=== PATIENT | female | born 1985 | race Caucasian/White ===

== ENCOUNTER 2016-12-24 05:12 | Emergency (ER) | payer OTHER ==
[~2016-12-24] VITALS: Ht 160 cm; Wt 86.4 kg
[~2016-12-24 05:12] MED LIST: PREN1TAB47 PO; TUMS PO
[2016-12-24 05:15] VITALS: BP 137/93; PULSE 96; RESP 16; O2SAT 98
[2016-12-24] MEDS ORDERED: 0.9% Sodium Chloride 1,000 ML IV ONE (05:23)
[2016-12-24] MEDS ORDERED: Ondansetron 2 mg/mL 2 mL Inj IVPUSH ONE (05:25)
--- NOTE | 2016-12-24 06:02 | ED.REPORT ---
HPI-Abd Pain F Under 40 Date of Service December 24, 2016 ED Provider: Wolf Cooley DO The pt is a 31 y/o female w/ a hx of multiple episodes of pyelonephritis presenting to the ED complaining of intermittent mid-back pain onset last week. Yesterday the pain was continuous. She reports the pain feeling better when she applies pressure and takes a warm shower. She also has SOB due to the pain. She denies fever, vomiting, diarrhea, abnormal vaginal discharge or dysuria. Nursing Notes Stated Complaint: RIGHT SIDED ABDOMINAL PAIN/CHEST PAIN Chief Complaint: Female Abdominal Pain Nursing Notes Reviewed: Yes Allergies: Coded Allergies: No Known Allergies (Verified , 03/28/06) Scheduled Calcium Carbonate-Expunged Drug, Do Not Renew (Tums Chewable-Expunged Drug, Do Not Renew!) 500 Mg Tablet 500 MG PO PRN Vit/Fe Fumarate/Fa-Expunged Drug, Do (-Expunged Drug, Do Not Renew!) 1 Tab Tablet 1 TAB PO DAILY Scheduled PRN Naproxen (Naproxen) 500 Mg Tab 500 MG PO BID PRN PRN For Pain General Time Seen by MD: 05:25 Chief Complaint Other (Back pain ) Hx Obtained From: Patient Arrived By: Walk-in Sudden in Onset?: Yes Onset Occurred: 1 week ago Symptom Duration: Since onset Location: : Back Quality: Painful Severity: Current: Mild Severity: Maximum: Mild Recent Healthcare: No recent doctor visit, No recent hospitalization Similar Sx Previous: Yes Past Medical History Past Medical History Pyelonephritis Past Surgical History Smoking History Unknown if Ever Smoker Social History Alcohol Use: "Social" Drug Use: Denies drug use Ambulatory Status Independent Review of Systems Constitutional: Denies: Fever Respiratory: Reports: Shortness of breath GI: Denies: Diarrhea, Vomiting Female: Denies: Dysuria, Vaginal discharge Musculoskeletal: Reports: Back pain, Lumbar pain Complete sys rev & neg: except as marked. Physical Exam Initial Vital Signs Vital Signs (First) Date Time Temp Pulse Resp B/P Pulse Ox O2 Delivery O2 Flow Rate FiO2 12/24/16 05:15 36.3 96 16 137/93 98 Room Air Initial VS: Reviewed, Vital signs normal General/Constitutional: Awake, Alert, No acute distress, Cooperative, Not toxic appearing Respiratory / Chest: Atraumatic, Breath sounds NL, Breath sounds = bilat, No respiratory distress, No rales, No rhonchi, No wheezing Cardiovascular: Heart rate NL, Regular rhythm, Heart sounds NL Abdomen: Atraumatic, Non-tender Back: Full range of motion, Painless range of motion, No CVA tenderness Focal R lower thoracic paraspinal tenderness Head / Eyes: Atraumatic, Normocephalic Skin: Atraumatic, Color NL, No rash, Warm, Dry Neurologic: Oriented X3, Speech NL Upper Extremity / MS: Atraumatic, Full range of motion Psychiatric: Affect NL, Mood NL Interpretation & Diagnostics Lab Results Interpretation Result Diagram: 12/24/16 0605 12/24/16 0605 Test 12/24/16 05:35 12/24/16 06:00 12/24/16 06:05 Urine Color Yellow (YELLOW) Urine Appearance Clear (CLEAR,HAZY) Urine pH 5.5 (5.0-8.0) Urine Specific [place] 1.030 (1.003-1.035) Urine Protein Negativemg/dL (NEG,TRACE) Urine Glucose (UA) Negativemg/dL (NEGATIVE) Urine Ketones Negativemg/dL (NEGATIVE) Urine Occult Blood Negative (NEGATIVE) Urine Nitrite Negative (NEGATIVE) Urine Bilirubin Negative (NEGATIVE) Urine Urobilinogen Normalmg/dL (NORMAL) Urine Leukocyte Esterase Negative (NEGATIVE) Urine RBC 0-2/hpf (0-2) Urine WBC 0-5/hpf (0-5) Urine Epithelial Cells Many/hpf (NONE-MOD) Urine Crystals None seen (NONE SEEN) Urine Bacteria Moderate/hpf (NONE-FEW) Urine Hyaline Casts None/lpf (NONE) Urine Granular Casts None seen (NONE SEEN) Urine Waxy Casts None seen (NONE SEEN) Urine Red Blood Cell Casts None seen (NONE SEEN) Urine White Blood Cell Casts None seen (NONE SEEN) Urine Mucus Present (None Seen) Urine Trichomonas None seen (NONE SEEN) Urine Yeast None (NONE SEEN) Urinalysis Comment None Urine Culture Reflexed Indicated Hold Francisco Top Tube Received (Received) White Blood Count 7.4th/mm3 (3.8-10.1) Red Blood Count 4.86mil/mm3 (3.90-5.20) Hemoglobin 13.6g/dL (12.0-15.6) Hematocrit 40.1% (35.0-46.0) Mean Corpuscular Volume 82.5fL (81-100) Mean Corpuscular Hemoglobin 28.0pg (27.0-35.0) Mean Corpuscular Hemoglobin Concent 33.9% (32.0-37.0) Red Cell Distribution Width 13.1% (12.3-15.4) Platelet Count 226bil/L (150-400) Neutrophils (%) (Auto) 79.3% (40-74) Lymphocytes (%) (Auto) 13.6% (14-46) Monocytes (%) (Auto) 5.4% (4-12) Eosinophils (%) (Auto) 1.1% (0-5) Basophils (%) (Auto) 0.3% (0-3) Prothrombin Time 9.7sec (8.1-12.5) Prothromb Time International Ratio 0.91ratio Sodium Level 139mEq/L (134-144) Potassium Level 4.2mEq/L (3.5-5.2) Chloride Level 103mEq/L (97-108) Carbon Dioxide Level 23mmol/L (18-29) Blood Urea Nitrogen 13mg/dL (6-20) Creatinine 0.63mg/dL (0.57-1.00) Estimat Glomerular Filtration Rate 158mL/min (>59) Glucose Level 118mg/dL (60-99) Calcium Level 10.1mg/dL (8.5-10.1) Magnesium Level 1.8mg/dL (1.6-2.6) Total Bilirubin 0.3mg/dL (0.0-1.2) Aspartate Amino Transf (AST/SGOT) 20U/L (0-50) Alanine Aminotransferase (ALT/SGPT) 19U/L (0-32) Alkaline Phosphatase 74U/L (25-150) Total Protein 7.3g/dL (6.4-8.4) Albumin 4.4g/dL (3.4-5.0) Lipase 18U/L (13-60) Re-Eval/Medical Decision Med Decision/Clinical Course Med Decision/Clinical Course: Overall patient's main concern was that she had pyelonephritis, see any obvious signs of infection or other life-threatening pathology, she has paraspinal muscle tenderness it is worse with movement and it does not sound like any acute life-threatening pathology. I do not suspect any emergent medical condition. The patient seemed reassured when she was told that her workup was unremarkable. She is prescribed naproxen and given return and follow-up precautions Source of Hx: Old records Re-Evaluation/Progress : Time of Eval: 07:25 Re-Evaluation/Progress Note: Pt rechecked. Discussed lab results. Informed pt of plan for treatment. Pt understands and agrees with plan for treatment. F/U instructions and RTER warnings given.All questions addressed. Counseled Regarding: Diagnosis, Need for follow-up, When/why to return to ED Discharge & Departure Primary Impression: Back pain Back pain location: back pain in unspecified location Chronicity: unspecified Back pain laterality: unspecified Qualified Code: M54.9 - Dorsalgia, unspecified Disposition: Home Discharge Condition All VS Reviewed: Yes Condition: Stable Additional Instructions: Your labs are normal. Your pain seems to be an intramuscular area. Use naproxen. Follow up with your primary care doctor or return to the ER as needed if worse. Referrals: NOPCP (PCP) Scribe Attestation Portions of this note were transcribed by Juan Jose Huerta and Harry Sharma. I, Dr. Brittany Hernandez personally performed the history, physical exam and medical decision- making; I reviewed and confirmed the accuracy of the information in the transcribed note. Signed by: Dpahne Calderon, 12/24/16 and 0745. Wolf Cooley DO December 24, 2016 06:02 Juan Jose Huerta December 24, 2016 06:16 HARRY SHARMA December 24, 2016 07:54
[2016-12-24 06:06] LABS: APPEARANCE,URINE CLEAR (CLEAR,HAZY); COLOR,URINE YELLOW (YELLOW)
[2016-12-24 06:07] LABS: OCCULT BLOOD,URINE NEGATIVE (NEGATIVE); PH,URINE 5.5 (5.0-8.0); UROBILINOGEN,URINE NORMAL (NORMAL)
[2016-12-24 06:31] LABS: INR 0.91 ratio
[2016-12-24 06:34] LABS: BASOPHILS % (AUTO) 0.3 % (0-3); EOSINOPHILS % (AUTO) 1.1 % (0-5); MONOCYTES % (AUTO) 5.4 % (4-12); Mean Corpuscular Volume 82.5 fL (81-100); NEUTROPHILS % (AUTO) 79.3 % (40-74); Platelet Count 226 bil/L (150-400)
[2016-12-24 06:35] LABS: Magnesium 1.8 mg/dL (1.6-2.6)
[2016-12-24] MEDS ORDERED: NPR500T PO (07:29)
[2016-12-24 07:41] VITALS: BP 106/63; PULSE 73; O2SAT 97
== END 2016-12-24 07:38 | disposition home or self-care (01) ==
LOC: SED 05:12 → EDUNIT# 05:12 → SED 07:38
DX: M54.6 Pain in thoracic spine (principal)
CPT/HCPCS: 36415; 80053; 81000; 81025; 83690; 83735; 85025; 85610; 87086; 87088; 96360; 99284; J7030